=== PATIENT | male | born 1980 | race Caucasian/White ===

== ENCOUNTER 2024-05-13 13:58 | Outpatient (CLI) | payer OTHER, SELFPAY ==
--- OUTSIDE RECORDS SUMMARY | 2024-05-13 17:34 | XMS_ITS | Clinical Summary ---
Author Organization [facility] Address [place], [place] [address] Care Team Providers Care Compress Engineer Name Role Phone None Primary Care Provider Unavailabl e Allergies Active Allergy Reactions Criticality Noted Date Comments Penicillins Rash 09/29/2006 Sulfa (Sulfonamide Antibiotics) Hives 09/02 Medications No known medications Social History Tobacco Use Types Packs/Day Years Used Date Smoking Tobacco: Never Smokeless Tobacco: Never Alcohol Use Standard Drinks/Week Comments Not Currently 0 (1 standard drink = 0.6 oz pur e alcohol) Social Connections Answer Date Recorded Frequency of Communication with Friends and Fami ly Not on file 07/04/2021 Financial Resource Strain Answer Date R ecorded Difficulty of Paying Living Expenses Not on file 07/04/2021 Difficulty of Paying Living Expenses Not on file 07/04/2021 Sex and Gender Information Value Date Recorded Sex Assigned at Not on file Gender Identity Not on file Sexual Orientation Not on file Obstetrics History Last Filed Vital Signs Vital Sign Reading Time Taken Comments Blood Pressure 130/82 09/25/2019 8:05 AM CDT Pulse 70 09/25/2019 8:05 AM CDT Temperature 36.6 ??C (97.9 ??F) 09/25/2019 8:05 AM CD T Respiratory Rate 20 09/25/2019 8:05 AM CDT Oxygen Saturation 98% 09/29/2006 4:19 AM CDT Inhaled Oxygen Concentration - - Weight 157 kg (346 lb 1.6 oz) 09/25/2019 8:05 AM CDT Height 180 cm (5' 10.87) 09/25/2019 8:05 AM CDT Body Mass Index 48.45 09/25/2019 8:05 AM CDT Plan of Treatment Health Maintenance Due Date Last Done Comments Tdap 1993 Depression screening for age 12+ 1994 HIV for age 15-65 1997 Hepatitis C screening for ag e 18-79 2000 Tetanus booster 2002 Lipids for age 35-44 2017 BMI (ht and wt on same day) for age 18+ 09/24/2020 09/25/2019, 12/22/2015 COVID-19 vaccine series (2023- season) 2024 Influenza for age 9-49 03/04/2024 Pneumococcal series for age 6-64 Aged Out No longer eligible b ased on patient's age to complete this topic Care Teams Compress Engineer Relationship Specialty Start Date End Date None . PCP - General 09/29/06
== END 2024-05-13 13:59 | disposition home or self-care (01) ==
LOC: NFLDREF 17:32
PROVIDERS: Visit Provider Family Medicine
DX: M54.9 Dorsalgia, unspecified (principal); R10.9 Unspecified abdominal pain; M54.50 Low back pain, unspecified
CPT/HCPCS: 87086